=== PATIENT | female | born 1945 | race Caucasian/White ===

== ENCOUNTER 2017-06-05 12:36 | Outpatient (CLI) | payer MEDICARE, OTHER ==
--- NOTE | 2017-06-10 16:52 | DEXA Report ---
DEXA SCAN: 06/05/2017 CLINICAL INDICATION: Postmenopausal. TECHNIQUE: Dual energy x-ray absorptiometry (DXA) was performed on a [employer] system. Regions measured are the AP spine, femoral neck, and, if needed, forearm. COMPARISON: None. In accordance with the International Society for Clinical Densitometry (ISCD) guidelines, data from previous exams may be reanalyzed using current recommendations and techniques. This is done to allow a more accurate basis for comparison with the current study. FINDINGS HIP DATA: REGION BMD (g/cm/cm) T-SCORE Z-SCORE Neck 0.728 -2.2 -0.5 TOTAL 0.819 -1.5 0.0 NOTE: The femoral neck or total proximal femur, whichever is lowest, is used for classification. FOREARM DATA: REGION BMD (g/cm/cm) T-SCORE Z-SCORE 1/3 0.656 -2.5 -0.6 NOTE:~ The~33% radius of the non-dominant forearm~is used for classification. IMPRESSION THE WHO CLASSIFICATION BASED ON THE INTERNATIONAL REFERENCE STANDARD: OSTEOPOROSIS. FRACTURE RISK: HIGH. LUMBAR SPINE NOT PERFORMED AND LEFT FOREARM PERFORMED DUE TO HISTORY OF LUMBAR SPINE SURGERY. RECOMMENDATION: Patients with diagnosis of osteoporosis or osteopenia should have regular bone mineral density assessment. For those eligible for Medicare, routine testing is allowed once every 2 years. Testing frequency can be increased for patients who have rapidly progressing disease or for those who are receiving medical therapy to restore bone mass. COMMENT: World Health Organization (WHO) definitions for osteoporosis and osteopenia: NORMAL BMD: T-score at -1.0 or higher, fracture risk is low. OSTEOPENIA BMD: T-score between -1.0 and -2.5, fracture risk is increased. OSTEOPOROSIS BMD: T-score at -2.5 or lower, fracture risk high. National Osteoporosis Foundation recommends: 1. Obtain adequate dietary calcium (at least 1200 mg per day) and vitamin D (400 -800 international units per day). 2. Participate, as appropriate, in regular weightbearing and muscle- strengthening exercise. 3. Avoid tobacco use and reduce alcohol and caffeine intake. 4. For more detailed information see the website at www.NOF.org. TD: 06/06/2017 05:25 [facility]ITALRami[facility]
== END 2017-06-05 12:37 | disposition home or self-care (01) ==
LOC: DI 12:36
PROVIDERS: ATTEND Physician Assistant
DX: M81.0 Age-related osteoporosis without current pathological fracture (principal); N95.8 Other specified menopausal and perimenopausal disorders
CPT/HCPCS: 77080

== ENCOUNTER 2017-06-05 12:36 | Outpatient (CLI) | payer MEDICARE, OTHER ==
--- NOTE | 2017-06-11 11:23 | Mammography Report ---
EXAM: DIGITAL BILATERAL SCREENING MAMMOGRAM: 06/05/2017 CLINICAL INDICATION: A 71-year-old with history of right cyst excision, for screening. COMPARISON: 03/2015, 02/2015, 09/2013, 09/2012, 09/2011, 08/2010. TECHNIQUE: Routine CC and MLO projections were obtained of the breasts. REPORT: The breasts demonstrate scattered fibroglandular densities bilaterally. Post-biopsy changes in the right lateral periareolar breast are stable. No suspicious masses, clustered microcalcifications, or regions of architectural distortion are identified. IMPRESSION: BENIGN FINDINGS. RECOMMENDATIONS: Routine annual screening unless otherwise clinically indicated. BIRADS 2 Benign findings. STANDARD QUALIFYING STATEMENTS: 1. This examination was reviewed with the aid of Computer-Aided Detection (CAD). 2. A negative or benign imaging report should not delay biopsy if clinically suspicious findings are present. Consider surgical consultation if warranted. More than 5% of cancers are not identified by imaging. 3. Dense breasts may obscure an underlying neoplasm. TD: 06/06/2017 15:58 RADHA
== END 2017-06-05 12:37 | disposition home or self-care (01) ==
LOC: DI 12:36
PROVIDERS: ATTEND Physician Assistant
DX: Z12.31 Encounter for screening mammogram for malignant neoplasm of breast (principal)
CPT/HCPCS: 77067

== ENCOUNTER 2018-02-05 09:57 | Outpatient (CLI) | payer MEDICARE, OTHER ==
--- NOTE | 2018-02-05 11:27 | XRAY Report ---
Procedure Date: 02/05/2018 Accession Number: [id number] / [id number] Procedure: XRS - Toe(s) LT CPT Code: FULL RESULT: EXAM: RIGHT/LEFT TOE RADIOGRAPHY EXAM DATE: 02/05/2018 10:11 AM. CLINICAL HISTORY: PAIN,TRAUMA, ecchymosis COMPARISON: None. TECHNIQUE: 3 views. FINDINGS: Bones: Normal. No fracture or bone lesion. Joints: Normal. No subluxations. Soft Tissues: Soft tissue swelling. IMPRESSION: Normal toe radiography. RADIA
== END 2018-02-05 09:58 | disposition home or self-care (01) ==
LOC: DI.S 09:57
PROVIDERS: ATTEND Physician Assistant
DX: M79.675 Pain in left toe(s) (principal)
CPT/HCPCS: 73660

== ENCOUNTER 2018-07-11 10:24 | Outpatient (CLI) | payer MEDICARE, OTHER ==
--- NOTE | 2018-07-13 08:58 | Mammography Report ---
Reason: SCREENING MAMMO Procedure Date: 07/11/2018 Accession Number: [id number] / [id number] Procedure: SWAPNIL - Screening Mammo w/[facility] CPT Code: FULL RESULT: EXAM: Screening Mammo w/M[facility] DATE: 07/11/2018 11:02 AM CLINICAL HISTORY: Screening encounter. History of early menses and cyst removal from the right breast. TECHNIQUE: Bilateral CC and MLO views were obtained. COMPARISON: 06/05/2017 through 03/06/2015. FINDINGS: The breasts demonstrate diffuse fatty replacement bilaterally. Postsurgical changes in the right breast are stable. No suspicious masses, clustered microcalcifications, or regions of architectural distortion are identified. IMPRESSION: Benign findings RECOMMENDATION: Routine annual screening unless otherwise clinically indicated. BIRADS CATEGORY 2: Benign findings STANDARD QUALIFYING STATEMENTS: 1. This examination was not reviewed with the aid of Computer-Aided Detection (CAD). 2. A negative or benign imaging report should not preclude biopsy if clinically suspicious findings are present. 3. Dense breasts may obscure an underlying neoplasm. 4. This examination was reviewed with the aid of 3D breast imaging (tomosynthesis).
== END 2018-07-11 10:25 | disposition home or self-care (01) ==
LOC: DI 10:24
DX: Z12.31 Encounter for screening mammogram for malignant neoplasm of breast (principal)
CPT/HCPCS: 77063; 77067

== ENCOUNTER 2018-12-23 10:18 | Outpatient (CLI) | payer MEDICARE, OTHER ==
--- NOTE | 2018-12-24 16:48 | XRAY Report ---
Reason: PAIN OF LEFT ANKLE JOINT Procedure Date: 12/23/2018 Accession Number: [id number] / [id number] Procedure: XRS - Ankle 3 View LT CPT Code: FULL RESULT: EXAM: LEFT ANKLE RADIOGRAPHY EXAM DATE: 12/23/2018 10:59 AM. CLINICAL HISTORY: Left ankle pain. Twisting injury 3 days ago. Pain and swelling around lateral malleolus. COMPARISON: None. TECHNIQUE: 3 views. FINDINGS: Bones: Prominent bony contour along the lateral margin of the distal left fibula likely represents a prominent osteophyte rather than fracture. No other osseous abnormalities. Minimal degenerative spurring. Joints: Ankle mortise is well-maintained. No dislocation. Mild joint space narrowing. No ankle effusion. Soft Tissues: Soft tissue swelling. IMPRESSION: 1. No acute osseous abnormalities. 2. Soft tissue swelling. 3. Mild degenerative changes. RADIA
== END 2018-12-23 10:19 | disposition home or self-care (01) ==
LOC: DI.S 10:18
PROVIDERS: ATTEND Nurse Practitioner Family
DX: M19.072 Primary osteoarthritis, left ankle and foot (principal)

== ENCOUNTER 2020-04-03 14:45 | Outpatient (CLI) | payer MEDICARE, OTHER ==
--- NOTE | 2020-04-06 12:40 | Mammography Report ---
BILATERAL DIGITAL SCREENING MAMMOGRAM 3D/2D: 04/03/2020 CLINICAL: Routine screening. No prior exams were available for comparison. There are scattered fibroglandular elements in both br easts. No significant masses, calcifications, or other findings are seen in either breast. IMPRESSION: NEGATIVE There is no mammographic evidence of malignancy. A 1 year screening mammogram is recommended. This exam was interpreted at Station ID: [id number]. NOTE: For mammograms, a report in lay terms will be sent to the patient. Approximately 15% of breast malignancies will not be visualized mammographically. In the management of a palpable breast mass, a negative mammogram must not discourage biopsy of a clinically suspicious lesion. Electronically Signed By: Marilyn najera/chan:04/04/2020 15:52:02 ACR BI-RADS Category 1: Negative 3341F PARENCHYMAL PATTERN: (A) - The breast(s) demonstrate(s) scattered fibroglandular densities. BI-RADS CATEGORY: (1) - 1 RECOMMENDATION: (ANNUAL) - Recommend routine annual screening mammography. [id number] 1 year screening LATERALITY: (B)
== END 2020-04-03 14:46 | disposition home or self-care (01) ==
LOC: DI 14:45
DX: Z12.31 Encounter for screening mammogram for malignant neoplasm of breast (principal)
CPT/HCPCS: 77063; 77067

== ENCOUNTER 2020-08-03 11:29 | Outpatient (CLI) | payer MEDICARE, OTHER | END 2020-08-03 11:30 | disposition home or self-care (01) | LOC: RT 11:29 | PROVIDERS: ATTEND Internal Medicine Cardiovascular Disease | DX: Z01.818 Encounter for other preprocedural examination (principal) | CPT/HCPCS: 93005 ==

== ENCOUNTER 2022-05-10 08:06 | Outpatient (CLI) | payer MEDICARE, OTHER ==
--- NOTE | 2022-05-10 10:27 | DEXA Report ---
PROCEDURE: Dexa Spine and/or Hip INDICATIONS: OSTEOPENIA TECHNIQUE: Dual energy x-ray absorptiometry (DXA) was performed on a [employer] System. Regions measur ed are the AP Spine, femoral neck, and if needed forearm. Forearm was included secondary to metallic devices within the lumbar spine. COMPARISON: DEXA 06/05/2017 FINDINGS: Left Hip: Bone Mineral Density 0.757 g/cm/cm,T score -2.0, compared to -1.5 Left Femoral Neck: Bone Mineral Density 0.674 g/cm/cm, T score 2.6, compared to -2.2 Left forearm: Bone Mineral Density 0.567 g/cm/cm, T score -3.5, compared to -2.5 (T score greater or equal to -1.0: NORMAL) (T score from -1.1 to -2.4: OSTEOPENIA) (T score less than or equal to -2.5 to: OSTEOPOROSIS) Impression: Progressive bone mineral density loss with osteoporosis in the left femoral neck and left forearm. Patients with diagnosis of osteoporosis or osteopenia should have regular bone mineral density assess ment. For those eligible for Medicare, routine testing is allowed once every 2 years. Testing frequ ency can be increased for patients who have rapidly progressing disease or for those who are receivin g medical therapy to restore bone mass. Reviewed by: Karime Lynch MD on 05/10/2022 10:25 AM PST Approved by: Karime Lynch MD on 05/10/2022 10:25 AM PST Station ID: [id number]
== END 2022-05-10 08:07 | disposition home or self-care (01) ==
LOC: DI 08:06
PROVIDERS: ATTEND Internal Medicine
DX: M81.0 Age-related osteoporosis without current pathological fracture (principal)

== ENCOUNTER 2022-05-13 10:31 | Outpatient (CLI) | payer MEDICARE, OTHER ==
--- NOTE | 2022-05-14 12:17 | Mammography Report ---
BILATERAL DIGITAL SCREENING MAMMOGRAM 3D/2D: 05/13/2022 CLINICAL: Routine screening. Family history of breast cancer. Comparison is made to exams dated: 04/03/2020 mammogram, 07/11/2018 mammogram, and 06/05/2017 mammogr am - [facility]. There are scattered areas of fibroglandular density in both breasts (category b / 25%-50% glandular t issue). No significant masses, calcifications, or other findings are seen in either breast. There has been no significant interval change. IMPRESSION: NEGATIVE There is no mammographic evidence of malignancy. A 1 year screening mammogram is recommended. Based on the Tyrer Cuzick model (a risk assessment model) the patients lifetime risk is 3.0% and her 10 year risk is 3.0%. According to the ACR, ACS, and NCCN guidelines, an annual breast MRI exam natasha g with mammogram is recommended if the patients lifetime risk is 20% or greater. This exam was interpreted at Station ID: [id number]. NOTE: For mammograms, a report in lay terms will be sent to the patient. Approximately 15% of breast malignancies will not be visualized mammographically. In the management of a palpable breast mass, a negative mammogram must not discourage biopsy of a clinically suspicious lesion. Electronically Signed By: Anupam traore/chan:05/13/2022 16:34:57 ACR BI-RADS Category 1: Negative 3341F PARENCHYMAL PATTERN: (A) - The breast(s) demonstrate(s) scattered fibroglandular densities. BI-RADS CATEGORY: (1) - 1 RECOMMENDATION: (ANNUAL) - Recommend routine annual screening mammography. [id number] 1 year screening LATERALITY: (B)
== END 2022-05-13 10:32 | disposition home or self-care (01) ==
LOC: DI.S 10:31
PROVIDERS: ATTEND Internal Medicine
DX: Z12.31 Encounter for screening mammogram for malignant neoplasm of breast (principal); Z80.3 Family history of malignant neoplasm of breast

== ENCOUNTER 2022-06-10 08:00 | Outpatient (CLI) | payer MEDICARE, OTHER ==
[2022-06-10 13:57] LABS: ALBUMIN 4.2 g/dL (3.2-5.5); CREATININE 0.7 mg/dL (0.4-1.0); POTASSIUM 4.2 mmol/L (3.5-5.0)
[2022-06-10 14:12] LABS: THYROID STIMULATING HORMONE 3.52 uIU/mL (0.34-5.60)
== END 2022-06-10 23:59 | disposition home or self-care (01) ==
LOC: LAB.S 08:00
PROVIDERS: ATTEND Internal Medicine
DX: M81.0 Age-related osteoporosis without current pathological fracture (principal)
CPT/HCPCS: 36415; 80048; 82040; 82306; 83970; 84443